=== PATIENT | female | born 1965 | race Caucasian/White ===

== ENCOUNTER → 2016-05-26 | Day surgery (SDC) | payer OTHER ==
[~2016-05-26] VITALS: Ht 162.6 cm; Wt 62.4 kg
[2016-05-26] VITALS (10 sets, daily range): BP systolic 119–144; BP diastolic 59–78; PULSE 84–98; RESP 14–19; O2SAT 94–99
[~2016-05-26] MED LIST: ALPR0.5T8 PO; BOTOX; Bupivacaine-MPF 0.5% 30 mL Inj INFILTRATE ONE; CHOL500011 PO; CLIN60LO2 TP; DIPH-36 PO; DULO60CA42 PO; Dexamethasone 4 mg/mL Inj IVPUSH PRN; Dexamethasone 4 mg/mL Inj ONE; EPHEDrine Sulfate 50 mg/mL Inj IVPUSH PRN; EPHEDrine/NS 5 mg/mL 5 mL Syringe ONE; GING550C3 PO; HYDR12.55 PO; HYDROmorphone 1 mg/mL Inj IVPUSH PRN; HepLOK Flush 100 unit/mL 5 mL Inj IVFLUSH ONE; IMI100 PO; Lactated Ringer's 1,000 ML IV ONE; Lactated Ringer's 1,000 ML IV SCH; Lactated Ringer's 500 ML IV PRN; Lidocaine PF 1% 30 mL Inj ONE; MUPI22OI2 TOP; MetoCLOpramide 5 mg/mL 2 mL Inj IVPUSH PRN; NYSTATIN PO; OLAN5TAB PO; OMEP20TA24 PO; ONDA-54 PO; OXYC-474 PO; Ondansetron 2 mg/mL 2 mL Inj IVPUSH PRN; Ondansetron 2 mg/mL 2 mL Inj ONE; PYR50 PO; Phenylephrine 10,000 mCg/mL Inj IVPUSH PRN; Propofol 10,000 mCg/mL 20 mL Inj ONE; SERT50TA9 PO; [UNRECOGNIZED DRUG - CODE] MC; [UNRECOGNIZED DRUG - OTHER]; fentaNYL-PF 50 mCg/mL 2 mL Inj IVPUSH PRN; fentaNYL-PF 50 mCg/mL 2 mL Inj ONE
[2016-05-26] MEDS: Clindamycin Inj 900 MG in IV Premix 1 EACH IV SCH ×2 (10:40→10:41)
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
--- NOTE | 2016-05-26 12:10 | DRSVH ---
PROCEDURE: NM SENTINEL NODE INJECTION ONLY, RIGHT BREAST RADIOPHARMACEUTICAL: 0.5 mCi Millipore filtered Tc-99m sulfur colloid. INDICATIONS: RIGHT BREAST CANCER PROCEDURE: The indications, alternatives, benefits, risks, and complications of the procedure were explained to the patient. Written informed consent was obtained and placed in the chart. The area around the nip ple was prepped and draped in a sterile fashion. Tc-99m sulfur colloid was injected in the outer edg e of the areola in the right breast. No image was obtained. IMPRESSION: Administration of radiotracer into the right breast periareolar region for intra-operati ve sentinel lymph node localization. Dictated by: Evelina Driscoll M.D. on 05/26/2016 at 12:08 Approved by: Evelina Driscoll M.D. on 05/26/2016 at 12:09
--- NOTE | 2016-05-26 13:46 | PCM.ANEP2 ---
Post Anesthesia Evaluation ASA/CMS Post Anesthesia VS in Patient's Normal Range?: Yes Resp Stable; Airway Patent?: Yes CV Function & Hydration Stable: Yes Mental Status Recovered?: Yes Pain control Satisfactory?: Yes N/V Control Satisfactory?: Yes Rio Ray MD May 26, 2016 13:46
--- NOTE | 2016-05-26 13:46 | PCM.ANEP1 ---
Post Anesthesia Phase 1 PACU Phase 1 Assessment Date of Service: May 26, 2016 (1020) Vital Signs 36.7, 95, 16, 134/67, 99% Vital Signs Date Time Temp Pulse Resp B/P Pulse Ox O2 Delivery O2 Flow Rate FiO2 05/26/16 09:33 36.2 84 18 144/78 96 Room Air Anesthetic Administered: GA Level of Alertness: Awake, talking DARLING's with Equal Strength: Yes Pain: No Nausea or Vomiting: No Oxygen Delivery: Simple Mask Lungs: Clear to Auscultation Dermatome Level: Full Sensation Summary uneventful GA Rio Ray MD May 26, 2016 13:46
--- NOTE | 2016-05-26 15:22 | DRSVH ---
PROCEDURE: X-RAY CHEST ONE VIEW ([id number]) INDICATIONS: Port Placement TECHNIQUE: One view of the chest was acquired. COMPARISON: [facility], CT, CT CHEST ABD PELVIS W CON, 05/08/2016, 15:23. FINDINGS: Surgical changes and devices: Left chest port has been placed and projects over the mid superior vena cava. Right axillary surgical clips. Lungs and pleura: No pleural effusions or pneumothorax. Airspace opacity present involving the mid right lung and right lung base, otherwise lungs are clear. Mediastinum: Mediastinal contours appear normal. Heart size is normal. Bones and chest wall: No suspicious bony lesions. Overlying soft tissues appear unremarkable. IMPRESSION: 1. Placement of left chest port without immediate complication. 2. Airspace opacity within the mid right lung and right lung base which may be related to atelectasis but aspiration or pneumonia cannot be excluded. Recommend clinical correlation and followup. Dictated by: Tristin HOLLAND Interpreted: Evelina Driscoll MD on 05/26/2016 at 15:20 Transcribed by: TERRY on 05/26/2016 at 15:22 Approved by: Evelina Driscoll M.D. on 05/26/2016 at 19:07
--- NOTE | 2016-05-26 15:47 | PCM.SURGPO ---
Immediate Operative Note Date of Surgery: May 26, 2016 Pre Operative Diagnosis Right Breast Cancer Post Operative Diagnosis Right Breast Cancer Procedure Wire localized R Partial Mastectomy and R Axillary SLN biopsy, Left subclavian port placement, Fluoroscopy Surgeon and Brick Siding Applicator Surgeon: Chelo Tate MD Assistants: Connor Link PAC & Ying Angelo PAC Findings Single SLN, Clip and Wires removed with specimen. Clip in Hematoma Complications There were no periprocedural complications identified. Surgical Specimen Removed: Yes Specimen sent to Pathology: Yes Anesthetic Administered: GA Grafts, Implants: Implants-See Implant Record Output, Estimated Blood Loss: 5 Blood Admin during surgery: No Attending Statement Egg Buyer listed was medically necessary for the successful completion of the case Chelo Tate MD May 26, 2016 15:47
--- NOTE | 2016-05-26 19:23 | OP ---
[address] [address] OPERATIVE REPORT PATIENT: ARETHA HASKINS : 1965 MR#: [id number] ADMIT: 05/26/2016 JOB ID: [id number] DATE OF SURGERY: 05/26/2016 PREOPERATIVE DIAGNOSIS(ES): Right breast cancer. POSTOPERATIVE DIAGNOSIS(ES): Right breast cancer. PROCEDURE PERFORMED: Wire localized right partial mastectomy, axillary sentinel lymph node biopsy, left subclavian tunneled central venous catheter placement with subcutaneous port, intraoperative fluoroscopy. SURGEON: Chelo Tate MD. RADIO BOARD OPERATOR ANNOUNCER: SRUTHI Joyner MS3. COMPLICATIONS: None. CONDITION OF THE PATIENT: Stable. INDICATIONS: The patient is a 51-year-old lady who was found to have a right-sided breast cancer based on a screening mammogram performed on April 21, 2016. The screening mammogram showed a 1.2 cm irregular mass with indistinct margin at the right axillary tail. She then had a diagnostic mammogram and an ultrasound which showed a 1.7 cm solid mass. Ultrasound-guided biopsy on May 01, 2016, showed invasive ductal carcinoma which was triple negative. She had significant bruising from the biopsy. She met with Medical Oncology and after discussing the risks, benefits, and alternatives, she is here today for partial mastectomy with sentinel lymph node biopsy and port placement. PROCEDURE DETAILS: She had wire localization in the breast [facility] with two wires placed earlier today and then had radiocolloid injection to the breast in the Day Surgery area and was brought to the operating room. The chest and neck were prepped and draped in the usual sterile fashion. Surgical time-out was undertaken using safety checklist, and all were in agreement. I began by making a curvilinear incision superolateral to the wire entry point and raised skin flaps and delivered the wires into the surgical field. Then, I continued with sharp dissection circumferentially to follow the wires posteriorly towards the chest wall. This dissection took me lateral to the pectoralis major muscle with visualization of hematoma cavity directly on the pectoralis laterally. At that point, I did enter the cavity because I did not want to resect any muscle without any evidence of tumor invading the muscle. I removed the clot and x-rayed it along with the specimen and actually found the clip to be located within the hematoma. I marked the specimen with a short stitch superior and long stitch lateral, and basically on the chest wall posteromedially and on the skin laterally. After this, I proceeded to perform a sentinel lymph node biopsy through the same incision. The maximum gamma count I got in the axilla was about 80, and I found a sentinel lymph node in the lateral aspect of the axilla which I removed with a combination of blunt and sharp dissection, controlling the lymphatics with clips and electrocautery. The ex vivo count on the lymph node the maximum was 178, with the background in the axilla to be 10 or less afterwards. At this point, I proceeded to close the partial mastectomy incision, after making sure we had good hemostasis. Then, proceeded to go to the left side and access the left subclavian vein with Seldinger technique, and advanced the wire, measured the required length of the catheter, and then made a pocket over the left pectoralis. Anchored the low-profile port in place and cut the catheter to required length. Dilated the wire with the introducer dilator and advanced the catheter through and then aspirated and flushed the port. Confirmed positioning again on final fluoroscopy and closed the incision with 4-0 Vicryl. Steri-Strips and sterile dressing were applied. Patient was recovered from anesthesia and was taken to the recovery room in stable condition.
--- NOTE | 2016-05-30 14:12 | PATH ---
SURGICAL PATHOLOGY Attending Physician:Chelo Tate MD CASE STATUS: Signed Out PATIENT NAME: ARETHA HASKINS PID: [id number] : 1965 DATE COLLECTED:05/26/2016 23:48 SPECIMEN: 1: Breast Mass, Excision (Wire Localization) 2: [place] Lymph Node CLINICAL HISTORY: RIGHT BREAST CANCER 1). RIGHT PARTIAL MASTECTOMY, UPPER OUTER QUADRANT, SHORT SUPERIOR, LONG LATERAL, OOB 12:22, TIF 12:32 2). RIGHT AXILLARY SENTINEL LYMPH NODE #1, OOB 12:41, TIF 12:43 FINAL DIAGNOSIS: 1.RIGHT BREAST: INVASIVE CARCINOMA OF THE BREAST. PROCEDURE: EXCISION WITH IMAGE-GUIDED LOCALIZATION. LYMPH NODE SAMPLING: SENTINEL LYMPH NODE (SEE PART 2). SPECIMEN LATERALITY: RIGHT. TUMOR SIZE: 19 X 16 X 7 MM. HISTOLOGIC TYPE: INVASIVE MAMMARY CARCINOMA OF NO SPECIAL TYPE (DUCTAL, NOT OTHERWISE SPECIFIED). HISTOLOGIC GRADE: LARA HISTOLOGIC SCORE. Glandular/Tubular differentiation: SCORE 3. Nuclear Pleomorphism: SCORE 3. Mitotic Rate: SCORE 3. Overall Grade: GRADE 3 (SCORE 9). TUMOR FOCALITY: SINGLE FOCUS OF INVASIVE CARCINOMA. DUCTAL CARCINOMA IN SITU (DCIS): NO DCIS IS PRESENT. MARGINS INVASIVE CARCINOMA: ALL MARGINS ARE UNINVOLVED BY INVASIVE CARCINOMA. DISTANCE FROM CLOSEST MARGIN: 3 MM FROM LATERAL MARGIN, 6 MM FROM POSTERIOR MARGIN. ALL OTHER MARGINS ARE GREATER THAN 10 MM. LYMPH NODES Total number of lymph nodes examined: 1. Number of sentinel lymph nodes examined: 1. Number of lymph nodes with metastases: 0. LYMPH-VASCULAR INVASION: NOT IDENTIFIED. PATHOLOGIC STAGING: (pTNM), AJCC, 7th ed., 2010 PRIMARY TUMOR: pT1c. REGIONAL LYMPH NODES: pN0 (sn). ADDITIONAL PATHOLOGIC FINDINGS: BIOPSY SITE IDENTIFIED. ANCILLARY STUDIES: IMMUNOHISTOCHEMICAL STUDIES FOR ER, DC, AND HER2 WERE PERFORMED ON THE PRIOR CORE BIOPSY ([facility], [id number]), SEE THAT REPORT FOR RESULTS. MICROCALCIFICATIONS: PRESENT, ASSOCIATED WITH INVASIVE CARCINOMA AND NON-NEOPLASTIC TISSUE. 2.RIGHT AXILLARY SENTINEL LYMPH NODE: ONE LYMPH NODE IDENTIFIED, NEGATIVE FOR METASTATIC CARCINOMA (0/1). ICD10 code C50.411 GROSS DESCRIPTION: The specimens are received in formalin, labeled with the patient's name, and sublabeled as the following: (1) right partial mastectomy, upper outer quadrant; (2) right axillary sentinel lymph node #1. (1) The specimen consists of a piece of breast tissue (3.5 cm AP, 6.5 cm SI, 7.5 cm ML) with no overlying skin. The specimen is oriented with 2 black sutures (short-superior, long-lateral). 2 localization wires are present. The specimen is serially sectioned ML into 20 slices with the medial and lateral resection margins slices #1 and #20 respectively. The breast tissue is densely fibrous and contains a baird-white solid firm irregular mass (1.9 x 1.6 x 0.7 cm) within slices #15-#19. The mass is 2.1 cm from the anterior, 0.6 cm from the posterior, 1.5 cm from the superior, 2.6 cm from the inferior, 5.6 cm from the medial, and a 0.3 cm from the lateral resection margins. The mass is adjacent to a hemorrhagic cavity (4.0 x 1.7 x 0.9 cm) within slices #15-#17. No other nodules, masses or lesions are identified. Ink code: purple-anterior; yellow-posterior; black-superior; orange-inferior; green-medial; blue-lateral. Section code: (1A) medial resection margin, perpendicularly sectioned, entirely submitted; (1B-1E) slice #14, tissue adjacent to mass, quartered, entirely submitted; (1F-1J) slice #15, entirely submitted; (1K-1N) slice #16, quartered, entirely submitted; (1O-1R) slice #17, quartered, entirely submitted; (1S-1V) slice #18, quartered, entirely submitted; (1W-1X) slice #19, major account representative; (1Y, 1Z) lateral resection margin, perpendicularly sectioned, major account representative. (2) The specimen consists of a lymph node (1.7 x 0.5 x 0.5 cm). Section code: (2A) one lymph node, serially sectioned. Specimen entirely submitted. Note: Approximate total fixation time in formalin for both specimens-30 hours calculated using a collection date of May 26, 2016 which times in fixative of 1232 and 1243. 05/27/16 JM ICD-9 CODES: CPT CODES: 1: 16294 2: 70889 Electronically Signed Out Shellie Rodrigez MD [facility] [address], [place] [address] Technical component performed at [facility], [address], [place], [address]
== END | disposition home or self-care (01) ==
LOC: SAS 09:05
PROVIDERS: ATTEND Student in an Organized Health Care Education/Training Program
DX: C50.411 Malignant neoplasm of upper-outer quadrant of right female breast (principal); Z17.1 Estrogen receptor negative status [ER-]; M06.9 Rheumatoid arthritis, unspecified; L73.2 Hidradenitis suppurativa; Z87.891 Personal history of nicotine dependence
CPT/HCPCS: 19301; 36561; 38525; 38792; 71010; 76098; 77001; A9541; C1788; J1100; J1642; J2175; J2250; J2405; J3010; J7120